=== PATIENT | female | born 1945 | race Caucasian/White ===

== ENCOUNTER 2021-03-22 09:10 | Emergency (ER) | payer OTHER ==
[~2021-03-22] VITALS: Ht 175.3 cm; Wt 58.5 kg
[2021-03-22] MEDS ORDERED: LEVOTHYROXINE88 MC1 PO (09:17)
[2021-03-22 09:36] LABS: ABSOLUTE BASOPHILS 0.1 thou/uL (0.0-0.2); ABSOLUTE LYMPHOCYTES 0.9 thou/uL (0.8-5.3); ABSOLUTE MONOCYTES 1.2 thou/uL (0.0-1.2); ABSOLUTE NEUTROPHILS 9.4 thou/uL (1.6-8.1); BASOPHILS 0.8 %; EOSINOPHILS 0.4 %; HEMATOCRIT 39.9 % (37.0-47.0); HEMOGLOBIN 13.1 gm/dL (12.0-15.0); LYMPHOCYTES 7.3 %; MCH 30.2 pg (26.0-34.0); MCHC 32.8 g/dL (28.0-37.0); MCV 92.2 fL (80.0-100.0); MONOCYTES 10.5 %; MPV 9.2 fl. (7.2-11.1); NUCLEATED RBCS 0 /100WBC; PLATELET COUNT* 367 thou/uL (150-400); RBC 4.32 mil/uL (4.20-5.00); RDW-CV 14.2 % (10.5-14.5); WBC 11.6 thou/uL (4.0-11.0)
[2021-03-22 10:00] LABS: ALBUMIN 2.5 g/dL (3.4-5.0); CALCIUM 10.1 mg/dL (8.5-10.1); CREATININE 0.7 mg/dL (0.6-1.3); POTASSIUM 4.1 mmol/L (3.5-5.1); TOTAL BILIRUBIN 0.4 mg/dL (<0.1-1.0)
[2021-03-22 10:31] LABS: URINE BILIRUBIN NEGATIVE (Negative); URINE BLOOD NEGATIVE (Negative); URINE CLARITY CLEAR; URINE COLOR YELLOW; URINE GLUCOSE-RANDOM NEGATIVE (Negative); URINE KETONES NEGATIVE (Negative); URINE LEUKOCYTES-REFLEX NEGATIVE (Negative); URINE NITRITE-REFLEX NEGATIVE (Negative); URINE PROTEIN NEGATIVE (Negative); URINE SPECIFIC GRAVITY 1.015 (1.005-1.030); URINE UROBILINOGEN 0.2 E.U./dl (0.2-1.0)
--- NOTE | 2021-03-22 11:32 | EKG ---
[place] [address] ELECTROCARDIOGRAM REPORT Name: NITHIN PRIETO Room: [facility]#: [id number] Admission: 03/22/21 Attend Phys: Discharge: Date of : 41 Date of Service: 03/22/21920 Report #: [id number] THIS REPORT FOR: //name// [facility] ED Test Date: 2021-03-22 Test Time: 09:21:52 Pat Name: NITHIN PRIETO Department: Room: Gender: [employer]: [facility] : 1945 Requested By: [place] Order Number: [id number] MD: Williams Browne Measurements Intervals [place] Rate: 83 P: 70 MA: 141 QRS: 73 QRSD: 86 T: 75 QT: 383 QTc: 450 Interpretive Statements Sinus rhythm Low voltage, extremity leads No previous ECG available for comparison Electronically Signed On 03-22-2021 11:31:46 CDT by Williams Browne [email or web address] <ELECTRONICALLY SIGNED> By: Williams Browne MD, [facility] 03/22/21 1131 0 0 Williams Browne MD, FACC /EPI
[2021-03-22 13:42] VITALS: BP 121/70
== END 2021-03-22 13:42 | disposition short-term general hospital (02) ==
LOC: M.ERS 09:10
PROVIDERS: Emergency Medicine Emergency Medical Services
DX: N85.2 Hypertrophy of uterus (principal); Z20.822 Contact with and (suspected) exposure to COVID-19; R10.84 Generalized abdominal pain; R10.30 Lower abdominal pain, unspecified; R77.8 Other specified abnormalities of plasma proteins; I10 Essential (primary) hypertension; J44.9 Chronic obstructive pulmonary disease, unspecified; Z90.711 Acquired absence of uterus with remaining cervical stump